=== PATIENT | male | born 1995 ===

== ENCOUNTER 2018-11-10 19:14 | Emergency (ER) | payer SELFPAY ==
[2018-11-10 19:25] VITALS: BP 128/76; PULSE 89; RESP 20; TEMP 98.6; O2SAT 98
[2018-11-10] MEDS ORDERED: Alum-Mag Hydrox-Simethicone Susp (30 mL) PO STA (19:37)
--- NOTE | 2018-11-10 19:39 | C.PDOC ---
History Of Present Illness 23 y/o male comes in complaining of nausea, some brief vomiting, and loose stools since this morning. States he had scant blood tinged stool when he wiped. Patient has no other complaints. Time Seen by Provider: 11/10/18 19:32 Chief Complaint (Nursing): Abdominal Pain History Per: Patient History/Exam Limitations: no limitations Onset/Duration Of Symptoms: Hrs Current Symptoms Are (Timing): Still Present Past Medical History Reviewed: Historical Data, Nursing Documentation, Vital Signs Vital Signs: Last Vital Signs Temp 98.6 F 11/10/18 19:21 Pulse 89 11/10/18 19:21 Resp 20 11/10/18 19:21 BP 128/76 11/10/18 19:21 Pulse Ox 98 11/10/18 19:21 Family History: States: No Known Family Hx - Social History Hx Alcohol Use: Yes Hx Substance Use: No - Immunization History Hx Tetanus Toxoid Vaccination: No Hx Influenza Vaccination: No Hx Pneumococcal Vaccination: No Review Of Systems Except As Marked, All Systems Reviewed And Found Negative. Cardiovascular: Negative for: Chest Pain Respiratory: Negative for: Shortness of Breath Gastrointestinal: Positive for: Nausea, Vomiting, Other (loose stools) Skin: Negative for: Rash Physical Exam - Physical Exam Appears: Non-toxic, No Acute Distress Skin: Warm, Dry Head: Atraumatic, Normacephalic Eye(s): bilateral: Normal Inspection Oral Mucosa: Moist Neck: Supple Chest: Symmetrical Cardiovascular: Rhythm Regular, No Murmur Respiratory: Normal Breath Sounds, No Rales, No Rhonchi, No Wheezing Gastrointestinal/Abdominal: Soft, No Tenderness Rectal: Deferred (with informed consent ) Extremity: Bilateral: Atraumatic, Normal Color And Temperature, Normal ROM Neurological/Psych: Oriented x3, Normal Speech ED Course And Treatment O2 Sat by Pulse Oximetry: 98 (RA) Pulse Ox Interpretation: Normal Medical Decision Making Medical Decision Making: Plan: --Maalox PO --Pepcid PO --Zofran PO viral syndrome n/v/d stable vital signs, benign belly ok for opt f/u. Disposition Doctor Will See Patient In The: Office Counseled Patient/Family Regarding: Studies Performed, Diagnosis - Disposition Referrals: [facility] [Outside] [employer] [facility] [Outside] [facility] [Outside] [facility] [Outside] Disposition: HOME/ ROUTINE Disposition Time: 19:39 Condition: GOOD Additional Instructions: liquid/BRAT diet for 2 days bananas, white rice, apples, toast/bread eat nothing fried for 3 days drink plenty of Gatorade Pepcid 20 mg at night to lower stomach acid Maalox 30 cc's (one tablespoon) 5/day to soothe the intestines Zofran ODT 4 mg (dissolves on tongue) once every 6-8 hours for nausea/vomiting Prescriptions: Ondansetron ODT [Zofran ODT] 4 mg PO Q6H PRN #6 odt PRN Reason: Nausea/Vomiting Instructions: Nausea and Vomiting, Adult (DC) Forms: [employer] (Angolan) - Clinical Impression Clinical Impression: Vomiting, Diarrhea - Scribe Statement The provider has reviewed the documentation as recorded by the Gualberto Menjivar Provider Attestation: All medical record entries made by the Alfonsoibyenifer were at my direction and personally dictated by me. I have reviewed the chart and agree that the record accurately reflects my personal performance of the history, physical exam, medical decision making, and the department course for this patient. I have also personally directed, reviewed, and agree with the discharge instructions and disposition.
[2018-11-10] MEDS ORDERED: Aluminum Hydroxide/Magnesium Hydroxide Susp (30 mL) ONE (19:46)
== END 2018-11-10 19:59 | disposition home or self-care (01) ==
LOC: C.ER 19:14
DX: R11.2 Nausea with vomiting, unspecified (principal); R19.7 Diarrhea, unspecified